=== PATIENT | female | born 1970 | race Caucasian/White ===

== ENCOUNTER → 2016-08-06 | Outpatient (CLI) | payer MEDICAID ==
[~2016-08-06] MED LIST: FLEXERIL10 MG PO; LEVOTHYROXIN0.125 MG PO; NAPROSYN500 M1 PO; NEURONTIN600 MG PO; Oxycodone5 MG NG; PERCOCET 5/3251 EACH PO; XANAX 0.5MG TA0.5 MG PO; ZANAFLEX4 M2 PO
--- NOTE | 2016-08-09 10:46 | RADIOLOGY REPORT PS360 ---
DIG MAMM- JIM ADD VIEWS W/CAD, US BREAST-RT COMPLETE W/AXILLA ULTRASOUND BREAST-LEFT COMPLETE WITH AXILLA COMPARISON: 06/11/2016, 12/29/2008 INDICATION: Follow-up abnormal mammogram ORDERING PHYSICIAN: Shoaib Zamorano MD PATIENT AGE: 46 years TECHNIQUE: Bilateral spot compression views along with bilateral breast ultrasound FINDINGS: Right mammogram: There is a well-circumscribed 2.7 x 2.2 cm nodule in the retroareolar region have an a somewhat bilobular appearance. There is a cyst in this area on ultrasound. There is asymmetric density in the upper outer right breast. Approximately 7 mm. A partially cystic nodules present in this area on ultrasound as well. Right breast ultrasound: 3 x 2 cm bilobular cystic lesion in the 12:00 area near the nipple corresponding to the largest mammographic abnormality, 5 mm bilobed cyst at 1:00, 7 mm cyst at 6:00, 7 x 4 mm complex cystic nodule at 10:00 with an additional 5 mm complex cystic nodule at 10:00 and 2 cyst also at 10:00 at 5 and 4 mm. 6 mm complex cystic nodule near the nipple. Dilated ducts behind the nipple. Left mammogram: Previously noted nodular density in the medial aspect of left breast is somewhat less apparent on spot compression views. A 1 cm cyst is present in its area on ultrasound likely corresponding to the mammographic abnormality. No malignant appearing mass or malignant appearing microcalcification. Left breast ultrasound: 6 mm cyst at 12:00, 7 mm cyst at 12:00, 5 mm cyst at 1:00, dilated duct near the nipple, 10 mm cyst at 10:00. No suspicious lesions evident. IMPRESSION: No convincing evidence of malignancy. Probably benign findings. Mammographic abdomen is probably corresponding to fibrocystic changes BI-RADS CATEGORY: 3_Probably Benign-Short Term F/U RECOMMENDED FOLLOWUP: Bilateral 6 month mammographic and sonographic follow-up to confirm short-term stability of the above-mentioned abnormalities (A letter has been sent to the patient regarding results of the study.)
== END ==
LOC: RAD 07-22 13:45
DX: R92.8 Other abnormal and inconclusive findings on diagnostic imaging of breast (principal)
CPT/HCPCS: G0204